=== PATIENT | male | born 1995 | race African-American/Black ===

== ENCOUNTER 2020-01-27 17:11 | Emergency (ER) | payer MEDICAID ==
[~2020-01-27] VITALS: Ht 170.2 cm; Wt 108.0 kg
[2020-01-27] MEDS ORDERED: IBUPROFEN 600MG TABLET PO ONE (22:30)
[2020-01-27 22:58] VITALS: BP 131/74
== END 2020-01-27 22:58 | disposition home or self-care (01) ==
LOC: EDSEX 17:11 → ER 17:11
DX: S16.1XXA Strain of muscle, fascia and tendon at neck level, initial encounter (principal); M62.830 Muscle spasm of back; V49.88XA Car occupant (driver) (passenger) injured in other specified transport accidents, initial encounter; Y93.89 Activity, other specified; Y92.89 Other specified places as the place of occurrence of the external cause; Y99.8 Other external cause status
CPT/HCPCS: 99282

== ENCOUNTER 2023-11-01 19:15 | Emergency (ER) | payer MEDICAID ==
[~2023-11-01] VITALS: Ht 167.6 cm; Wt 102.0 kg
[2023-11-01 19:29] VITALS: BP 129/87; PULSE 110; RESP 18; TEMP 97.6; O2SAT 98
[2023-11-01] MEDS ORDERED: LIDOCAINE HCL/EPINEPHRINE 1%-EPI 1:100,000 20 ML VIAL INFIL ONE (19:45)
[2023-11-01] MEDS ORDERED: BACITRACIN ZINC OINT UDPKT TOP ONE (19:45)
[2023-11-01] MEDS ORDERED: TETANUS, DIPHTHERIA, PERTUSSIS VAC/PF 0.5ML (>10YR OLD) IM ONE (19:45)
[2023-11-01] MEDS ORDERED: LIDOCAINE HCL/PF 1% 10 MG/ML 5ML VIAL INFIL ONE (19:45)
[2023-11-01] MEDS ORDERED: AMOX1TAB16 MT (22:07)
[2023-11-01] MEDS ORDERED: IBUP-2030 MT (22:07)
== END 2023-11-01 22:57 | disposition home or self-care (01) ==
LOC: ER 19:15
DX: S01.512A Laceration without foreign body of oral cavity, initial encounter (principal); X58.XXXA Exposure to other specified factors, initial encounter; Y93.89 Activity, other specified; Y92.89 Other specified places as the place of occurrence of the external cause; Y99.8 Other external cause status
CPT/HCPCS: 12011; 99283

== ENCOUNTER 2023-11-08 00:45 | Emergency (ER) | payer MEDICAID ==
[~2023-11-08] VITALS: Ht 170.2 cm; Wt 100.0 kg
[~2023-11-08 00:45] MED LIST: AMOX1TAB16 MT; IBUP-2030 MT
[2023-11-08 01:10] VITALS: BP 124/76; PULSE 71; RESP 18; TEMP 98.7; O2SAT 100
[2023-11-08] MEDS ORDERED: BO1 TP (01:48)
== END 2023-11-08 02:03 | disposition home or self-care (01) ==
LOC: ER 00:45
DX: S01.511D Laceration without foreign body of lip, subsequent encounter (principal); Z48.02 Encounter for removal of sutures; X58.XXXD Exposure to other specified factors, subsequent encounter
CPT/HCPCS: 99282